=== PATIENT | male | born 2005 | race American Indian/Alaskan Native ===

== ENCOUNTER 2024-06-25 02:43 | Emergency (ER) | payer OTHER ==
[2024-06-25] MEDS: Diphtheria,Pertussis(Acell),Tetanus Vaccine 0.5 ML Syringe IM ONE (03:24)
[2024-06-25] MEDS: Lidocaine 1% 10 ML MDV INJECT ONE (03:24)
== END 2024-06-25 04:36 | disposition home or self-care (01) ==
LOC: JD.ED 02:43
DX: S61.011A Laceration without foreign body of right thumb without damage to nail, initial encounter (principal); Z23 Encounter for immunization; W26.8XXA Contact with other sharp object(s), not elsewhere classified, initial encounter
CPT/HCPCS: 12001; 90471; 90715; 99282-25; J3490